=== PATIENT | female | born 1955 | race African-American/Black ===

== ENCOUNTER 2017-12-14 05:36 | Emergency (ER) | payer MEDICARE, OTHER ==
[~2017-12-14] VITALS: Ht 172.7 cm; Wt 111.6 kg
[2017-12-14 06:40] VITALS: BP 152/67
--- NOTE | 2017-12-14 07:11 | Emergency Room Report ---
History of Present Illness General Chief Complaint: Headache Source: Patient Present Illness HPI Ms. Kennedy is a very pleasant 62-year-old female who presents with headache for the last 2 days. She has had pain at the vertex of her head radiating to the left ear. She recently had teeth extraction 3 weeks ago. No fever. No vomiting. No photophobia. Pain is improved with tactile pressure. She used a scar with mild relief. No previous history of similar headache. She has been followed by pain management since November 2016 for pain relief s/p knee replacement on the right side. She has run out of her [place] medication. Next appt with her pain management nurse is in 5 days on December 19. Allergies: Coded Allergies: FENTANYL (Verified Allergy, Unknown, 12/14/17) IBUPROFEN (Verified Allergy, Unknown, 12/14/17) MORPHINE (Verified Allergy, Unknown, 12/14/17) Patient History Past Medical History: old chart reviewed Last Menstrual Period: none Now: No Reviewed Nursing Documentation: PMH: Agreed; PSxH: Agreed Nursing Documentation-PMH Hx Cardiac Problems: Yes - A-fib Hx Hypertension: Yes Review of Systems Constitutional: Denies: fever, malaise Eye: Denies: blurred vision Cardiovascular: Denies: chest pain Musculoskeletal: Denies: back pain Skin: Denies: rash All Other Systems: negative except mentioned in HPI Physical Exam Vital Signs Date Time Temp Pulse Resp B/P (MAP) Pulse Ox O2 Delivery O2 Flow Rate FiO2 12/14/17 06:02 98.3 54 18 145/81 96 98.2 12/14/17 06:40 Room Air Sp02 EP Interpretation: reviewed, normal General Appearance: no apparent distress, alert, GCS 15, non-toxic, other - smiling articulate lively appears well without discomfort Head: normocephalic, atraumatic Eyes: bilateral eye normal inspection, bilateral eye PERRL ENT: hearing grossly normal, normal pharynx, no angioedema, normal voice, TMs + canals normal, uvula midline, moist mucus membranes Neck: full range of motion, supple/symm/no masses Respiratory: chest non-tender, lungs clear, normal breath sounds, speaking full sentences Cardiovascular #1: regular rate, rhythm, no edema, no gallop, no JVD, no murmur , no rub Gastrointestinal: normal bowel sounds, non tender, soft, no mass, no organomegaly, no peritonitis, no bruit, non-distended, no guarding, no rebound Genitourinary: normal inspection Musculoskeletal: back normal, gait/station normal, normal range of motion, non- tender, calf tenderness Neurologic: alert, oriented x3, responsive, motor strength/tone normal, sensory intact, speech normal Psychiatric: judgement/insight normal, memory normal, mood/affect normal, no suicidal/homicidal ideation Skin: normal color, no rash, warm/dry, well hydrated Lymphatic: no adenopathy Medical Decision Making Diagnostic Impression: Primary Impression: Tension headache, chronic ER Course Ms. Kennedy presents with mild headache. I do not detect an emergent condition such as intracranial hemorrhage or encephalitis. No evidence of otitis media or tooth infection. She was given reassurance. received one dose of Percocet in the ED. I explained that she must contact her pain management nurse for prescription for analgesics Last Vital Signs Date Time Temp Pulse Resp B/P (MAP) Pulse Ox O2 Delivery O2 Flow Rate FiO2 12/14/17 06:40 98.2 53 18 152/67 100 Room Air 98.2 Disposition: HOME, SELF-CARE Condition: Stable Mary Pinto MD Dec 14, 2017 07:11
[2017-12-14] MEDS ORDERED: oxyCODONE HCL/Acetaminophen 5/325mg ORAL ONE (07:15)
[2017-12-14 07:35] VITALS: BP 152/67
== END 2017-12-14 07:35 | disposition home or self-care (01) ==
LOC: EMR 07:30
DX: G44.229 Chronic tension-type headache, not intractable (principal)
CPT/HCPCS: 99282